=== PATIENT | female | born 1965 | race Caucasian/White ===

== ENCOUNTER 2022-04-14 10:26 | Outpatient (CLI) | payer OTHER, SELFPAY ==
--- NOTE | 2022-04-14 10:39 | MM_ITS ---
WS: [id number] BILATERAL SCREENING DIGITAL BREAST MAMMOGRAPHY WITH RYAN DISPLACEMENT VIEWS. CAD PERFORMED. HISTORY: SCREENING COMPARISON: 02/06/2013 Bilateral craniocaudal and mediolateral oblique views are performed with tomosynthesis and SM. Ryan displacement views in CC and MLO projection also performed. Breasts composition: There are scattered areas of fibroglandular density. Retropectoral implants rem ain intact. There are a few benign calcifications within each breast. No mass or distortion. MM/[id number] IMPRESSION: BI-RADS: 2-Benign FOLLOW-UP: 1 Year Follow-up
== END 2022-04-14 10:27 | disposition home or self-care (01) ==
LOC: RAD 10:28
PROVIDERS: PCP Family Medicine; Visit Provider Family Medicine
DX: Z12.31 Encounter for screening mammogram for malignant neoplasm of breast (principal)
CPT/HCPCS: 77063; 77067

== ENCOUNTER 2023-10-28 07:13 | Outpatient (CLI) | payer OTHER, SELFPAY ==
--- NOTE | 2023-10-28 07:28 | MM_ITS ---
WS: [id number] Bilateral screening 3D tomosynthesis digital mammogram, 10/28/2023 Clinical Data: SCREEN Comparison: 04/14/2022, 02/06/2013 Findings: The breast parenchymal pattern shows heterogeneous density. The augmentation mammoplasty implants are intact. No spiculated masses or clustered calcifications are seen. There are no secondary signs of c arcinoma. Impression: 1. Negative bilateral mammogram with intact mammoplasty implants unchanged. 2. Recommend annual screening mammograms. MM/[id number] BIRADS: 2-Benign FOLLOW UP: 1 Year Follow-up The CAD order checker was used.
== END 2023-10-28 07:14 | disposition home or self-care (01) ==
LOC: RAD 07:13
PROVIDERS: PCP Family Medicine; Visit Provider Family Medicine
DX: Z12.31 Encounter for screening mammogram for malignant neoplasm of breast (principal)
CPT/HCPCS: 77063; 77067

== ENCOUNTER 2024-11-23 08:21 | Outpatient (CLI) | payer OTHER, SELFPAY ==
--- NOTE | 2024-11-23 08:26 | MM_ITS ---
WS: [id number] BILATERAL SCREENING DIGITAL BREAST MAMMOGRAPHY WITH RYAN DISPLACEMENT VIEWS. CAD PERFORMED. HISTORY: SCREENING COMPARISON: 10/28/2023, 04/14/2022 Bilateral craniocaudal and mediolateral oblique views are performed with tomosynthesis and SM. Ryan displacement views in CC and MLO projection also performed. Breasts composition: There are scattered areas of fibroglandular density. Retropectoral implants are intact. Benign calcifications in each breast. No new mass or distortion. Similar appearance of the fibroglandular densities. MM/MM [facility] tomosynthesis [id number] IMPRESSION: BI-RADS: 2 - Benign. FOLLOW-UP: 1 Year Follow-up
== END 2024-11-23 08:22 | disposition home or self-care (01) ==
PROVIDERS: PCP Family Medicine; Visit Provider Family Medicine
DX: Z12.31 Encounter for screening mammogram for malignant neoplasm of breast (principal); R92.323 Mammographic fibroglandular density, bilateral breasts; Z98.82 Breast implant status; R92.1 Mammographic calcification found on diagnostic imaging of breast
CPT/HCPCS: 77063; 77067